=== PATIENT | female | born 1990 | race Caucasian/White ===

== ENCOUNTER 2016-04-14 19:10 | Emergency (ER) | payer OTHER ==
[~2016-04-14] VITALS: Ht 165.1 cm; Wt 75.0 kg
[2016-04-14 19:10] VITALS: Ht 165.1 cm; Wt 75.0 kg
[~2016-04-14 19:10] MED LIST: AMO500 PO; CIPR500T4 PO; NITR-58 PO
[2016-04-14] MEDS ORDERED: CETI10CA PO (19:20)
[2016-04-14] MEDS ORDERED: ACET500C5 PO (19:20)
[2016-04-14] MEDS ORDERED: AMO500 PO (19:20)
--- NOTE | 2016-04-14 19:24 | ERD ---
ER Documentation Chief Complaint Date/Time DATE: 04/14/16 TIME: 19:21 Chief Complaint B ear pressure from colds x days now HPI 22-year-old female presents to emergency department for complaints of bilateral ear pain, runny nose nasal congestion for 3 days. Patient has been having dry cough, does not up any phlegm or blood. Patient does not have any shortness breath or wheezing. Patient started to have bilateral ear pain yesterday, throbbing pain, 6/10 scale, denies any ear discharge, denies any problems with hearing. Patient denies any foreign body in the ear. Patient took Tylenol for pain with mild relief. Patient is approximately 28 weeks . Patient does not complain of abdominal pain, cramping, vaginal bleeding, or any problems with at this time. ROS All systems reviewed and are negative except as per history of present illness. Medications Home Meds Active Scripts Cetirizine Hcl* (Zyrtec*) 10 Mg Capsule, 10 MG PO DAILY, #30 TAB.CHEW Prov:DEMI WARREN NP 04/14/16 Acetaminophen* (Tylophen*) 500 Mg Capsule, 1 CAP PO Q6H Y for PAIN AND OR ELEVATED TEMP, #20 CAP Prov:DEMI WARREN PEDIATRICS PHYSICIAN 04/14/16 Amoxicillin* (Amoxicillin*) 500 Mg Cap, 500 MG PO TID for 10 Days, CAP Prov:DEMI WARREN PEDIATRICS PHYSICIAN 04/14/16 Nitrofurantoin Monohyd Macrocr* (Macrobid*) 100 Mg Capsr, 100 MG PO BID for 7 Days, CAP Prov:NICOLE POLK PA-C 11/18/15 Amoxicillin* (Amoxicillin*) 500 Mg Cap, 500 MG PO BID for 7 Days, CAP Prov:NICOLE POLKC 08/07/15 Ciprofloxacin Hcl* (Ciprofloxacin Hcl*) 500 Mg Tablet, 500 MG PO BID for 5 Days , TAB Prov:NICOLE POLKC 02/12/15 Allergies Allergies: Coded Allergies: No Known Allergy (Unverified , 05/22/14) PMhx/Soc History of Surgery: Yes (appendectomy) Anesthesia Reaction: No Hx Neurological Disorder: No Hx Respiratory Disorders: No Hx Cardiac Disorders: No Hx Psychiatric Problems: No Hx Miscellaneous Medical Probl: No Hx Alcohol Use: No Hx Substance Use: No Hx Tobacco Use: No FmHx Family History: diabetes Physical Exam Vitals Vital Signs Date Time Temp Pulse Resp B/P Pulse Ox O2 Delivery O2 Flow Rate FiO2 04/14/16 19:10 97.8 78 18 109/53 99 Physical Exam GENERAL: The patient is well developed and appropriate for usual state of health, in no apparent distress. HEENT: Atraumatic. Ears: Lateral ear tympanic membrane is noted to be erythematous and bulging. No ear canal swelling. No ear discharge. Nose: Erythematous nasal turbinates with clear nasal discharge. Throat: oropharynx erythematous with postnasal drip. No tonsillar swelling or tonsillar exudates. No lymphadenopathy. CHEST: Clear to auscultation bilaterally. There are no rales, wheezes or rhonchi. HEART: Regular rate and rhythm. No murmurs, clicks, rubs or gallops. No S3 or S4. ABDOMEN: Soft, nontender and nondistended. Good bowel sounds. No rebound or guarding. No gross peritonitis. No gross organomegaly or masses. No Burk sign or McBurney point tenderness. BACK: No midline or flank tenderness. EXTREMITIES: Equal pulses bilaterally. There is no peripheral clubbing, cyanosis or edema. No focal swelling or erythema. Full range of motion. Grossly neurovascularly intact. NEURO: Alert and oriented. Cranial nerves 2-12 intact. Motor strength in all 4 extremities with 5/5 strength. Sensation grossly intact. Normal speech and gait. SKIN: There is no apparent rash or petechia. The skin is warm and dry. HEMATOLOGIC AND LYMPHATIC: There is no evidence of excessive bruising or lymphedema. No gross cervical, axillary, or inguinal lymphadenopathy. Procedures/MDM Medical Decision Making: Patient symptoms are most likely consistent with upper respiratory tract infection most likely viral, but withsecondary infection bilateral otitis media which is most likely bacterial. No symptoms of otitis externa or mastoiditis. No murmur body noted in the ear. No cerumen impaction noted. No foreign body noted in the ear, noted on exam with perforation noted. There is low suspicion for Pneumonia at this time since patients lungs sounds are clear, patient O2 saturation is normal and patient doesnt show any respiratory distress. Radiology exams indicated at this time. There is low suspicion for other cardiopulmonary emergencies at this time such as CHF, Pulmonary Embolism, Pneumothorax, Aortic Aneurysm or any other cardiopulmonary emergencies at this time. There is low suspicion for sepsis. Patient appears well and is hemodynamically stable. Fever is controlled with medicines. No symptoms of any threatened or any problems with . Disposition: Home. Condition: Stable Prescriptions: Tylenol, Zyrtec, amoxicillin Instructions: Patient is advised to take medications as prescribed. Patient is advised to rest. Patient advised to increase fluid intake, do humidifier at home and if possible, do salt water gargles. Patient is advised that if symptoms are worse, shortness of breath, uncontrolled fever, stridor, vomiting, worst signs and symptoms to return to emergency department immediately. Otherwise, patient is advised to follow up with primary doctor in 5-7 days. Departure Diagnosis: Primary Impression: URI (upper respiratory infection) URI type: unspecified viral URI Qualified Code: J06.9 - Viral upper respiratory tract infection Additional Impression: Bilateral otitis media Otitis media type: serous Chronicity: acute Recurrence: not specified as recurrent Qualified Code: H65.03 - Bilateral acute serous otitis media, recurrence not specified Condition: Stable Patient Instructions: Otitis Media, Abx Tx (Adult), Uri, Viral, No Abx (Adult) DEMI WARREN NP Apr 14, 2016 19:24
== END 2016-04-14 19:24 | disposition home or self-care (01) ==
LOC: FTE 19:10
DX: J06.9 Acute upper respiratory infection, unspecified (principal); H65.03 Acute serous otitis media, bilateral
CPT/HCPCS: 99283

== ENCOUNTER 2016-04-23 12:24 | Outpatient (CLI) | payer OTHER ==
[~2016-04-23] VITALS: Ht 165.1 cm; Wt 72.8 kg
[~2016-04-23 12:24] MED LIST changes: +ACET500C5 PO; +CETI10CA PO
[2016-04-23 12:36] VITALS: Ht 165.1 cm; Wt 72.8 kg
[2016-04-23 12:37] VITALS: BP 127/67; RESP 20
[2016-04-23] MEDS ORDERED: PRENAT PO (12:49)
[2016-04-23 13:25] LABS: BASOPHILS % 0.1 % (0.0-2.0); EOSINOPHILS # 0.1 10^3/ul (0.0-0.5); EOSINOPHILS % 0.8 % (0.0-7.0); HEMATOCRIT 31.7 % (37.0-47.0); HEMOGLOBIN 10.8 g/dl (12.0-16.0); LYMPHOCYTES % 12.4 % (15.0-51.0); MEAN CORPUSCULAR HEMOGLOBIN 30.7 pg (29.0-33.0); MEAN CORPUSCULAR HGB CONC 34.1 g/dl (32.0-37.0); MEAN CORPUSCULAR VOLUME 89.9 fl (82.0-101.0); MEAN PLATELET VOLUME 6.9 fl (7.4-10.4); MONOCYTE # 0.4 10^3/ul (0.3-0.9); MONOCYTES % 4.9 % (0.0-11.0); NEUTROPHIL # 6.3 10^3/ul (1.6-7.5); NEUTROPHILS % 81.8 % (39.0-77.0); PLATELET COUNT 391 10^3/UL (140-440); RED BLOOD COUNT 3.53 10^6/ul (4.20-5.40); RED CELL DISTRIBUTION WIDTH 12.4 % (11.5-14.5); UNCORRECTED WBC 7.8 10^3/ul (4.8-10.8); WHITE BLOOD COUNT 7.8 10^3/ul (4.8-10.8)
[2016-04-23 13:26] LABS: INR 0.92; PROTIME 12.4 Sec (12.2-14.2)
[2016-04-23 13:27] LABS: PARTIAL THROMBOPLASTIN TIME 29.1 Sec (25.0-35.0)
--- NOTE | 2016-04-23 13:33 | RADRPT ---
PROCEDURE: US OB biophysical profile. CLINICAL INDICATION: decreased movements, hypertension TECHNIQUE: Multiple sonographic images of the pelvis were obtained. The images were reviewed on a PACS workstation. COMPARISON: 11/18/15 FINDINGS: There is a single viable intrauterine gestation. Cardiac activity is present with 140 beats per min [place]. There is a vertex presentation. The placenta is anterior. There is no evidence of placental abruption. There is a normal amount of amniotic fluid with an CECELIA = 12.6 cm. Biophysical profile: movement 2/2 tone 2/2. breathing 2/2 CECELIA 2/2 Total 11/12 RPTAT: AA . IMPRESSION: Normal biophysical profile. . .Isreal Grande MD, MD Date Time Electronically viewed and signed by .Isreal Grande MD, on 04/23/2016 13:32 .S/
[2016-04-23 13:34] LABS: CONDITION 1
[2016-04-23 13:36] LABS: POTASSIUM 3.7 mmol/L (3.5-5.1)
[2016-04-23 13:38] LABS: BILIRUBIN,INDIRECT 0.1 mg/dl (0-1.1); BILIRUBIN,TOTAL 0.1 mg/dl (0.2-1.3); TOTAL PROTEIN 7.8 g/dl (6.1-8.1)
[2016-04-23 13:39] LABS: URIC ACID 2.3 mg/dl (3.1-7.9)
[2016-04-23 13:45] LABS: ALBUMIN 3.5 g/dl (3.3-4.9); ALBUMIN/GLOBULIN RATIO 0.81
[2016-04-23 13:49] LABS: CREATININE 0.48 mg/dl (0.44-1.00)
[2016-04-23 13:50] LABS: CALCIUM 8.7 mg/dl (8.4-10.2)
[2016-04-23 13:55] LABS: ADD UMIC YES; URINE BILIRUBIN (Dip) NEGATIVE (NEGATIVE); URINE BLOOD (Dip) 2+ (NEGATIVE); URINE COLOR YELLOW (YELLOW); URINE GLUCOSE (Dip) NEGATIVE (NEGATIVE); URINE KETONES (Dip) TRACE (NEGATIVE); URINE LEUKOCYTE ESTERASE (Dip) 2+ (NEGATIVE); URINE NITRITE (Dip) NEGATIVE (NEGATIVE); URINE TOTAL PROTEIN (Dip) TRACE (NEGATIVE); URINE UROBILINOGEN (Dip) 0.2 E.U./dL (0.1-1.0)
[2016-04-23 14:13] LABS: BACTERIA,URINE MANY; MUCUS,URINE MANY
--- NOTE | 2016-04-23 15:04 | QN ---
Documentation Comment OB triage: 29+wks GA R/o PIH No headache no epigastric pain no blurry vision VS stable BP 100-120/80s NST reassuring Organ no CTXs pelvic deffered ---->Collect 24 hr urine for pr --->return to hospital for another NST BPP and BP monitoring in 2 days JUAN HARRIS M.D. Apr 23, 2016 15:04
== END 2016-04-23 15:18 | disposition home or self-care (01) ==
LOC: OBT 12:24 → L-D 12:24 → OBT 15:18
PROVIDERS: ATTEND Obstetrics & Gynecology
DX: O26.893 Other specified pregnancy related conditions, third trimester (principal); R03.0 Elevated blood-pressure reading, without diagnosis of hypertension; Z3A.29 29 weeks gestation of pregnancy
CPT/HCPCS: 76818; 80053; 81001; 81003; 84560; 85025; 85610; 85730; Z7500; 87086; G0463

== ENCOUNTER 2016-04-25 10:34 | Outpatient (CLI) | payer OTHER ==
[~2016-04-25] VITALS: Ht 165.1 cm; Wt 74.8 kg
[~2016-04-25 10:34] MED LIST changes: -ACET500C5 PO; -AMO500 PO; -CETI10CA PO; -CIPR500T4 PO; -NITR-58 PO; +PRENAT PO
[2016-04-25] MEDS ORDERED: FER325 PO (10:51)
[2016-04-25 10:52] VITALS: BP 106/54; PULSE 84; RESP 18; Ht 165.1 cm; Wt 74.8 kg
--- NOTE | 2016-04-25 13:37 | CONS ---
DATE OF ADMISSION: 04/25/2016 DATE OF CONSULTATION: 04/25/2016 HISTORY OF PRESENT ILLNESS: This patient is a 25-year-old 2, para 0, 1, with EDC of 07/06/2016, which makes her about 29 weeks and 5 days. She apparently had elevated blood pressure in Dr. Kramer's office. Was sent to triage for work up,. A 24 hours urine collection was ordered and today she brought back the specimen. PHYSICAL EXAMINATION: VITAL SIGNS: On examination today, she is afebrile. Abdomen is soft. Her blood pressure is within normal range 106/54. Not complaining of headache. Her pulse rate and temperature and saturation are all within normal limits. ABDOMEN: Soft. he is now 29 weeks and 5 days and heart tone appears to be normal. No deceleration, no decreased variability is visible. EXTREMITIES: No edema. No varicosity. Knee jerk reflexes are within normal limits. PLAN: We will send the urine specimen for 24-hour urine protein and she will be followed in Dr. Kramer's office and the results will be sent there. Dictated By: JAMISON SHAIKH MD HF/NTS Conf#: [id number] DID#: [id number] ALEN
== END 2016-04-25 11:25 | disposition home or self-care (01) ==
LOC: OBT 10:34 → L-D 10:35 → OBT 11:25
PROVIDERS: ATTEND Obstetrics & Gynecology
DX: O14.93 Unspecified pre-eclampsia, third trimester (principal); Z3A.29 29 weeks gestation of pregnancy
CPT/HCPCS: 59025; 84156; G0463

== ENCOUNTER 2016-06-30 08:07 | Outpatient (CLI) | payer OTHER ==
[~2016-06-30] VITALS: Ht 165.1 cm; Wt 81.1 kg
[~2016-06-30 08:07] MED LIST changes: +FER325 PO
[2016-06-30 08:13] VITALS: Ht 165.1 cm; Wt 81.1 kg
[2016-06-30 08:14] VITALS: BP 104/63; PULSE 98; RESP 17
--- NOTE | 2016-06-30 08:43 | RADRPT ---
PROCEDURE: OB ultrasound for biophysical profile CLINICAL INDICATION: Biophysical profile. . TECHNIQUE: Multiple sonographic images of the pelvis were obtained. Transabdominal view of the gr avid uterus are available for review. The images were reviewed on a PACS workstation. COMPARISON: 04/23/2016 FINDINGS: Single intrauterine gestation. Presentation: Cephalic. Partially visualized placenta: Anterior. breathing movement = 2/2 tone = 2/2 motion = 2/2 CECELIA = 2/2 CECELIA = 10 cm heart rate: 165 beats per minute IMPRESSION: Single intrauterine gestation. Biophysical profile 11/12 RPTAT: AADD .Martin Israel MD, MD Date Time Electronically viewed and signed by .Martin Israel MD, on 06/30/2016 08:43 .B/
--- NOTE | 2016-06-30 09:02 | QN ---
Documentation Comment 39+wks GA with Hx of Low CECELIA ,Currently CECELIA is 10 BPP 11/12 and NST reactive Patient is not in labor ,,According to primary provider's decision and the patient ,patient is discharged and will return to the hospital in 2 days for another NST and BPP.The instructions and precautions reviewed with patient and patient's questions and family members answered JUAN HARRIS M.D. Jun 30, 2016 09:02
--- NOTE | 2016-06-30 09:58 | TRIAGE ---
OB Triage Datetime Report Generated by CPN: 06/30/2016 09:58 Datetime: 06/30/2016 08:52 Labor Evaluation Frequency: X1 Monitor Mode: External Duration (sec)2399: 80 Quality: Mild Pattern: Normal: <= 5 Contractions in 10 Minutes Resting Tone [place]: Relaxed Heart Rate FHR Baseline Rate: 145 Monitor Mode: External US FHR Baseline Changes: No Baseline Change Variability: Moderate 6-25 bpm Accelerations: 15X15 Decelerations: None Category: Category I Pain Assessment Pain Scale: 0 Pain Presence: None/Denies Pain Type: N/A Vaginal Exam Membrane Status: Intact Datetime: 06/30/2016 08:16 Time of Arrival: 06/30/2016 08:08 EGA: 39.1 Arrived By: Ambulatory Arrived From: Home Chief Complaint: PT PRESENTS TO TRIAGE FOR FOLLOW UP BPP DUE TO LOW CECELIA Movement: Present Contractions: Denies/Absent Rupture of Membranes: Denies Vaginal Bleeding: None Vaginal Discharge: Present Recent Sexual Intercouse: Denies Abdominal Trauma: Not Applicable Patient Complaints: None Additional Patient Complaints: CECELIA 06/24-10, CECELIA 06/28-6 Time Provider Notified: 06/30/2016 08:45 Provider Notified: BEULAH Initial Plan: NST/BPP Datetime: 06/30/2016 08:15 Assessment Type: Triage Maternal Assessment Level of Consciousness: Fully Conscious DTR's/Clonus: DTRs 2+; No Clonus Headache: Denies Blurred Vision: No Respiratory Effort: Unlabored; Regular Rhythm Breath Sounds, Left: Clear and Equal Breath Sounds, Right: Clear and Equal Nausea/Vomiting: Denies RUQ Epigastric Pain: Denies Lower Extremities Edema: None Degree: None Upper Extremities Edema: None Degree: None Facial Edema: None Fall Risk Assessment History of Falling: (0) No Secondary Diagnosis: (0) No Ambulatory Aid: (0) Bedrest/Nurse Assist IV Therapy: (0) No Gait: (0) Normal/Bedrest/Immobile Mental Status: (0) Oriented to Own Ability Fall Score: 0 Fall Risk Score Definition: No Risk: No action required Datetime: 06/30/2016 08:14 Monitor Mode: External Monitor Mode: External US Pain Assessment Pain Scale: 0 Pain Presence: None/Denies Pain Type: N/A Datetime: 04/25/2016 10:50 Assessment Type: Triage Maternal Assessment Level of Consciousness: Fully Conscious DTR's/Clonus: DTRs 2+; No Clonus Headache: Denies Blurred Vision: No Respiratory Effort: Unlabored; Regular Rhythm; Equal Expansion Breath Sounds, Left: Clear and Equal Breath Sounds, Right: Clear and Equal Nausea/Vomiting: Denies RUQ Epigastric Pain: Denies Lower Extremities Edema: None Degree: None Upper Extremities Edema: None Degree: None Facial Edema: None Fall Risk Assessment History of Falling: (0) No Secondary Diagnosis: (0) No Ambulatory Aid: (0) Bedrest/Nurse Assist IV Therapy: (0) No Gait: (0) Normal/Bedrest/Immobile Mental Status: (0) Oriented to Own Ability Fall Score: 0 Fall Risk Score Definition: No Risk: No action required Datetime: 04/25/2016 10:49 Time of Arrival: 04/25/2016 10:33 EGA: 29.5 Arrived By: Ambulatory Arrived From: Home Chief Complaint: pt here with 24 hour urine collection Movement: Present Contractions: Denies/Absent Rupture of Membranes: Denies Vaginal Bleeding: None Vaginal Discharge: Denies Recent Sexual Intercouse: Denies Abdominal Trauma: Not Applicable Patient Complaints: None Time Provider Notified: 04/25/2016 10:56 Provider Notified: EBULAH Initial Plan: NST/24 HOUR URINE FOR PROTEIN Datetime: 04/23/2016 14:43 Labor Evaluation Frequency: 0 Duration (sec)2399: 0 Heart Rate FHR Baseline Rate: 150 FHR Baseline Changes: No Baseline Change Variability: Moderate 6-25 bpm Accelerations: 10X10 Category: Category I Pain Assessment Pain Scale: 0 Pain Presence: None/Denies Pain Type: N/A Pain Goal: 0 Datetime: 04/23/2016 13:45 Stage of : OB Triage Labor Evaluation Frequency: 0 Monitor Mode: External Heart Rate FHR Baseline Rate: 135 Monitor Mode: External US Variability: Moderate 6-25 bpm Accelerations: 10X10 Decelerations: None Category: Category I Pain Assessment Pain Scale: 0 Pain Presence: None/Denies Pain Type: N/A Pain Goal: 0 Vaginal Exam Membrane Status: Intact Datetime: 04/23/2016 13:10 Stage of : OB Triage Labor Evaluation Frequency: 0 Monitor Mode: External Heart Rate FHR Baseline Rate: 145 Monitor Mode: External US Variability: Moderate 6-25 bpm Accelerations: 10X10 Decelerations: None Category: Category I Datetime: 04/23/2016 13:08 Labor Evaluation Frequency: 0 Monitor Mode: External Heart Rate FHR Baseline Rate: 140 Monitor Mode: External US FHR Baseline Changes: No Baseline Change Variability: Moderate 6-25 bpm Accelerations: 10X10 Decelerations: None Category: Category I Pain Assessment Pain Scale: 0 Pain Presence: None/Denies Pain Type: N/A Pain Goal: 0 Datetime: 04/23/2016 12:45 Stage of : OB Triage Assessment Type: Triage Maternal Assessment Level of Consciousness: Fully Conscious DTR's/Clonus: DTRs 2+; No Clonus Headache: Denies Blurred Vision: No Respiratory Effort: Unlabored; Regular Rhythm; Equal Expansion Breath Sounds, Left: Clear and Equal Breath Sounds, Right: Clear and Equal Nausea/Vomiting: Denies RUQ Epigastric Pain: Denies Lower Extremities Edema: None Degree: None Upper Extremities Edema: None Degree: None Facial Edema: None Fall Risk Assessment History of Falling: (0) No Secondary Diagnosis: (0) No Ambulatory Aid: (0) Bedrest/Nurse Assist IV Therapy: (0) No Gait: (0) Normal/Bedrest/Immobile Mental Status: (0) Oriented to Own Ability Fall Score: 0 Fall Risk Score Definition: No Risk: No action required Datetime: 04/23/2016 12:43 EGA: 29.3 Datetime: 04/23/2016 12:42 Time of Arrival: 04/23/2016 12:22 Arrived By: Ambulatory Arrived From: Dr. Velasquez Chief Complaint: ELEVATED BLOOD PRESSURE AT CLINIC Movement: Present Contractions: Denies/Absent Rupture of Membranes: Denies Vaginal Bleeding: None Vaginal Discharge: Present Recent Sexual Intercouse: Denies Abdominal Trauma: Not Applicable Patient Complaints: None Additional Patient Complaints: STRESS FROM WORK ; NETWORK OPERATIONS MANAGER Time Provider Notified: 04/23/2016 14:22 Provider Notified: DR. RIOJAS Initial Plan: PIH, NST, BPP, 24 HOUR URINE Datetime: 04/23/2016 12:35 Monitor Mode: External Monitor Mode: External US Pain Assessment Pain Scale: 0 Pain Presence: None/Denies Pain Type: N/A Pain Goal: 0 Vaginal Exam Membrane Status: Intact
== END 2016-06-30 09:01 | disposition home or self-care (01) ==
LOC: L-D 08:07 → OBT 08:07
PROVIDERS: ATTEND Obstetrics & Gynecology
DX: O41.03X0 Oligohydramnios, third trimester, not applicable or unspecified (principal); Z3A.39 39 weeks gestation of pregnancy
CPT/HCPCS: 76818; Z7500; G0463

== ENCOUNTER 2016-07-03 08:53 | Inpatient (IN) | payer OTHER ==
[~2016-07-03] VITALS: Ht 165.1 cm; Wt 81.8 kg
[2016-07-03 09:35] VITALS: BP 132/91; PULSE 132; RESP 18; Ht 165.1 cm; Wt 81.8 kg
--- NOTE | 2016-07-03 09:57 | PN ---
Date/Time of Note Date/Time of Note DATE: 07/03/16 TIME: 09:52 OB Subjective Subjective Subjective here for f/u for amniotia fluid volume OB Objective Objective Objective CECELIA will be measured EFM mild irregular u.c reactive strip OB Assessment/Plan Other Assessment: IUP 39w4d CECELIA borderline Other plan: patient wants to go home if cecelia is ok f/u in 3days here in triage for CECELIA TIARRA RIOJAS MD Jul 03, 2016 09:57
--- NOTE | 2016-07-03 10:57 | RADRPT ---
PROCEDURE: US OB. CLINICAL INDICATION: Size and dates , low CECELIA TECHNIQUE: Multiple sonographic images of the pelvis and gravid uterus were obtained. The images were reviewed on a PACS workstation. COMPARISON: 06/30/16 FINDINGS: There is a single viable intrauterine gestation. Cardiac activity is present with 144 beats per min [place]. There is a vertex presentation. The placenta is anterior. There is no evidence for an abruption or placenta previa. There is a decreased amount of amniotic fluid with an CECELIA = 6.2 cm. Measurements were made in order to determine age. The results are as follows: BPD =8.9 cm HC =31.7 cm AC =33 cm FL =7.4 cm Estimated gestational age of approximately 36 weeks and 4 days based on ultrasound measurements. Clinical age: 39 weeks and 4 days. The estimated date of delivery is 07/27/16, based on ultrasound measurements. The EFW = 3060 g, 14.2%, based on LMP age. RPTAT: AA IMPRESSION: Single viable intrauterine gestation of approximately 36 weeks and 4 days based on ultrasound measu rements. Smaller than clinical age by 3 weeks. Oligohydramnios. .Isreal Grande MD, Date Time Electronically viewed and signed by .Isreal Grande MD, MD on 07/03/2016 10:56 .S/
[2016-07-03] MEDS ORDERED: LIDOCAINE 1% (MPF) 30 ML INJ INJ PRN (13:30)
[2016-07-03] MEDS ORDERED: IBUPROFEN 600 MG TAB PO PRN (13:30)
[2016-07-03] MEDS ORDERED: LACTATED RINGER'S 1,000 ML IV PRN (13:30)
[2016-07-03] MEDS ORDERED: CARBOPROST 250 MCG INJ IM PRN (13:30)
[2016-07-03] MEDS ORDERED: MISOPROSTOL 200 MCG TAB PR PRN (13:30)
[2016-07-03] MEDS ORDERED: OXYTOCIN 30 UNITS/LR 500 ML IV SCH ×2 (13:30)
[2016-07-03] MEDS ORDERED: OXYTOCIN 30 UNITS/LR 500 ML IV PRN (13:30)
[2016-07-03] MEDS ORDERED: DINOPROSTONE 10 MG VAG SUPP VAG ONE (13:30)
[2016-07-03] MEDS ORDERED: METHYLERGONOVINE 0.2 MG INJ IM PRN (13:30)
[2016-07-03 14:28] LABS: ADD SCAN DIFF NO
[2016-07-03 14:30] LABS: BASOPHILS % 0.2 % (0.0-2.0); EOSINOPHILS # 0.1 10^3/ul (0.0-0.5); EOSINOPHILS % 0.8 % (0.0-7.0); HEMATOCRIT 34.3 % (37.0-47.0); HEMOGLOBIN 11.3 g/dl (12.0-16.0); LYMPHOCYTES # 1.2 10^3/ul (0.8-2.9); LYMPHOCYTES % 12.7 % (15.0-51.0); MEAN CORPUSCULAR HEMOGLOBIN 29.6 pg (29.0-33.0); MEAN CORPUSCULAR HGB CONC 32.9 g/dl (32.0-37.0); MEAN CORPUSCULAR VOLUME 89.8 fl (82.0-101.0); MEAN PLATELET VOLUME 10.1 fl (7.4-10.4); MONOCYTE # 0.6 10^3/ul (0.3-0.9); NEUTROPHIL # 7.2 10^3/ul (1.6-7.5); NEUTROPHILS % 78.9 % (39.0-77.0); PLATELET COUNT 249 10^3/UL (140-415); RED BLOOD COUNT 3.82 10^6/ul (4.20-5.40); RED CELL DISTRIBUTION WIDTH 14.5 % (11.5-14.5); WHITE BLOOD COUNT 9.1 10^3/ul (4.8-10.8)
[2016-07-03] MEDS: LACTATED RINGER'S 1,000 ML IV SCH ×2 (14:34→21:42)
[2016-07-03 14:44] LABS: INR 0.87; PROTIME 11.8 Sec (12.2-14.2); PT RATIO 0.9
[2016-07-03 14:45] LABS: PARTIAL THROMBOPLASTIN TIME 27.3 Sec (25.0-35.0)
--- NOTE | 2016-07-03 16:10 | TRIAGE ---
OB Triage Datetime Report Generated by CPN: 07/03/2016 16:09 Datetime: 07/03/2016 15:54 Pain Assessment Pain Scale: 0 Pain Presence: None/Denies Pain Type: N/A Datetime: 07/03/2016 15:45 Labor Evaluation Frequency: none Monitor Mode: External Resting Tone [place]: Relaxed Heart Rate FHR Baseline Rate: 130 Monitor Mode: External US FHR Baseline Changes: No Baseline Change Variability: Moderate 6-25 bpm Accelerations: 15X15 Decelerations: None Category: Category I Datetime: 07/03/2016 15:30 Labor Evaluation Frequency: none Monitor Mode: External Resting Tone [place]: Relaxed Heart Rate FHR Baseline Rate: 130 Monitor Mode: External US FHR Baseline Changes: No Baseline Change Variability: Moderate 6-25 bpm Accelerations: 15X15 Decelerations: None Category: Category I Datetime: 07/03/2016 15:15 Labor Evaluation Frequency: none Monitor Mode: External Resting Tone [place]: Relaxed Heart Rate FHR Baseline Rate: 135 Monitor Mode: External US FHR Baseline Changes: No Baseline Change Variability: Moderate 6-25 bpm Accelerations: 15X15 Decelerations: None Category: Category I Datetime: 07/03/2016 15:00 Labor Evaluation Frequency: x1 Monitor Mode: External Duration (sec)2399: 60 Quality: Mild Pattern: Normal: <= 5 Contractions in 10 Minutes Resting Tone [place]: Relaxed Heart Rate FHR Baseline Rate: 130 Monitor Mode: External US FHR Baseline Changes: No Baseline Change Variability: Moderate 6-25 bpm Accelerations: 15X15 Decelerations: None Category: Category I Datetime: 07/03/2016 14:44 Vaginal Exam Dilatation (cms): 0.0 Exam By: AO Datetime: 07/03/2016 14:30 Assessment Type: Admission Assessment Vaginal Bleeding: None Maternal Assessment Level of Consciousness: Fully Conscious DTR's/Clonus: DTRs 2+; No Clonus Headache: Denies Blurred Vision: No Respiratory Effort: Unlabored; Regular Rhythm; Equal Expansion Breath Sounds, Left: Clear and Equal Breath Sounds, Right: Clear and Equal Nausea/Vomiting: Denies RUQ Epigastric Pain: Denies Lower Extremities Edema: None Degree: None Upper Extremities Edema: None Degree: None Facial Edema: None Fall Risk Assessment History of Falling: (0) No Secondary Diagnosis: (0) No Ambulatory Aid: (0) Bedrest/Nurse Assist IV Therapy: (20) Yes Gait: (0) Normal/Bedrest/Immobile Mental Status: (0) Oriented to Own Ability Fall Score: 20 Fall Risk Score Definition: No Risk: No action required Labor Evaluation Frequency: NONE Heart Rate FHR Baseline Rate: 130 Variability: Moderate 6-25 bpm Accelerations: 15X15 Decelerations: None Category: Category I Pain Assessment Pain Scale: 0 Pain Presence: None/Denies Pain Type: N/A Membrane Status: Intact Datetime: 07/03/2016 14:26 Time of Arrival: 07/03/2016 13:50 EGA: 39.4 Arrived By: Ambulatory Arrived From: Home Datetime: 07/03/2016 11:06 Headache: Denies Labor Evaluation Frequency: X2 Monitor Mode: External Duration (sec)2399: 40-50 Quality: Mild Pattern: Normal: <= 5 Contractions in 10 Minutes Resting Tone [place]: Relaxed Heart Rate FHR Baseline Rate: 145 Monitor Mode: External US FHR Baseline Changes: No Baseline Change Variability: Moderate 6-25 bpm Accelerations: 15X15 Decelerations: None Category: Category I Pain Assessment Pain Scale: 0 Pain Presence: None/Denies Pain Type: N/A Pain Goal: 0 Membrane Status: Intact Datetime: 07/03/2016 09:58 Headache: Denies Labor Evaluation Frequency: X2 Monitor Mode: External Duration (sec)2399: 50-60 Quality: Mild Pattern: Normal: <= 5 Contractions in 10 Minutes Resting Tone [place]: Relaxed Heart Rate FHR Baseline Rate: 150 Monitor Mode: External US FHR Baseline Changes: No Baseline Change Variability: Moderate 6-25 bpm Accelerations: 15X15 Decelerations: None Category: Category I Membrane Status: Intact Datetime: 07/03/2016 09:31 Monitor Mode: External Resting Tone [place]: Relaxed Heart Rate FHR Baseline Rate: 130 Monitor Mode: External US FHR Baseline Changes: No Baseline Change Variability: Moderate 6-25 bpm Accelerations: 15X15 Decelerations: None Category: Category I Datetime: 07/03/2016 09:19 Stage of : OB Triage Maternal Assessment Level of Consciousness: Fully Conscious DTR's/Clonus: DTRs 2+; No Clonus Headache: Denies Blurred Vision: No Respiratory Effort: Unlabored Breath Sounds, Left: Clear and Equal Breath Sounds, Right: Clear and Equal Nausea/Vomiting: Denies RUQ Epigastric Pain: Denies Facial Edema: None Labor Evaluation Frequency: X1 Monitor Mode: External Duration (sec)2399: 70 Quality: Mild Pattern: Normal: <= 5 Contractions in 10 Minutes Resting Tone [place]: Relaxed Heart Rate FHR Baseline Rate: 135 Monitor Mode: External US FHR Baseline Changes: No Baseline Change Variability: Moderate 6-25 bpm Accelerations: 15X15 Decelerations: None Category: Category I Pain Assessment Pain Scale: 0 Pain Presence: None/Denies Pain Type: N/A Pain Goal: 0 Pain Relief Measures: Comfort Measures Vaginal Exam Dilatation (cms): 0.0 Effacement (%): 0 Exam By: BRIAN AL Membrane Status: Intact Vaginal Bleeding: None Cervix, Consistency: Firm Cervix, Position: Posterior Presentation 'A': Unable to Assess Lie 'A': Unable to Assess Datetime: 07/03/2016 08:50 Arrived By: Ambulatory Arrived From: Home Chief Complaint: LOW CECELIA Movement: Present Contractions: Denies/Absent Rupture of Membranes: Denies Vaginal Bleeding: None Vaginal Discharge: Denies Recent Sexual Intercouse: Denies Abdominal Trauma: Not Applicable Patient Complaints: None Time Provider Notified: 07/03/2016 09:20 Provider Notified: BEULAH Datetime: 06/30/2016 08:16 EGA: 39.1 Datetime: 06/30/2016 08:15 Fall Score: 0 Fall Risk Score Definition: No Risk: No action required Datetime: 04/25/2016 10:50 Fall Score: 0 Fall Risk Score Definition: No Risk: No action required Datetime: 04/25/2016 10:49 EGA: 29.5 Datetime: 04/23/2016 12:45 Fall Score: 0 Fall Risk Score Definition: No Risk: No action required Datetime: 04/23/2016 12:43 EGA: 29.3
[2016-07-03] MEDS: BUTORPHANOL 2 MG INJ IV PRN (21:42)
[2016-07-04] MEDS: BUTORPHANOL 2 MG INJ IV PRN (01:34)
[2016-07-04] MEDS ORDERED: FENTAnyl 2MCG/ML-ROPIV 0.2% 100 ML ONE (05:15)
[2016-07-04] MEDS: LACTATED RINGER'S 1,000 ML IV SCH ×3 (05:27→18:57)
[2016-07-04] MEDS ORDERED: MINERAL OIL LIGHT 10 ML VIAL TOP SCH (14:30)
--- NOTE | 2016-07-04 15:07 | LDN ---
Date/Time of Note Date/Time of Note DATE: 07/04/16 TIME: 15:05 Delivery Summary normal vaginal delivery Weeks of Gestation 39w5d Placenta Delivered: Spontaneously Meconium: none Episiotomy: No Perineal laceration: 2 Laceration repair: 00ch Anesthesia type: Epidural Estimated blood loss: 100 Sponge & Needle done & correct: Yes All needle counts correct: Yes Any foreign bodies felt in the: No Problems: Delivery Information Sex Sex: female Apgars 1 Minute: 9 5 Minute: 9 Suctioning Nose & mouth suctioned at nelsy: Yes Delee suction performed: No Umbilical Cord Umbilical cord with: 3 Vessels Cord presentations: nuchal cord Nuchal cord present X: 1 Cord Blood was obtained: Yes Mother & Baby Disposition Disposition Mom & Baby to Maternity; Good: Yes Mom transferred to: Other () Baby to NICU: No TIARRA RIOJAS MD Jul 04, 2016 15:07
[2016-07-04 17:00] VITALS: BP 119/73; PULSE 80; RESP 18
[2016-07-04 17:30] VITALS: BP 118/62; PULSE 81; RESP 18
--- NOTE | 2016-07-04 17:57 | HP ---
Date/Time of Note Date/Time of Note DATE: 07/04/16 TIME: 17:51 OB - History Hx of Present Free Text/Dictation 25 y.o primigravida at 39w4d for f/u for borderline ramirez which was repeated at triage rvealed only 6cm she was recommanded for induction of labor for oligohydramnios and admitted for indction of labor cervix long and closed Estimated Due Date: Jul 07, 2016 : 1 Para: 0 Spontaneous : 0 Therapeutic : 0 Care: Good Care Ultrasounds: Normal mid trimester US Obstetrical Complications: Other (oligohydramnios) Past Family/Social History * Past Medical, Surgical, Family and Obstetric Histories reviewed from chart. Rubella: immune RPR/VDRL: Negative GBS Status: Negative HBsAG: Negative OB Admission Exam Vital Signs Vital Signs Vital Signs Date Time Temp Pulse Resp B/P Pulse Ox O2 Delivery O2 Flow Rate FiO2 07/04/16 17:00 99.1 80 18 119/73 Room Air 07/03/16 09:35 100 Physical Exam HEENT: WNL Cervical Dilatation: None Effacement: 0% Station: -2 Membranes: Intact Amniotic Fluid: Unevaluable Heart Rate: 140's Accelerations: Accelerations Present Decelerations: No Decelerations Varibility: Moderate Contractions on Admission: >10 Minutes Apart Intensity: Mild Last 72 hours Lab Results CBC & BMP 07/03/16 14:10 OB Assessment/Plan Reason for admission: induction of labor Other Assessment: oligodramnios Plan: Induction Induction Method: per Misoprostol Protocol TIARRA RIOJAS MD Jul 04, 2016 17:57
[2016-07-04] MEDS ORDERED: CARBOPROST 250 MCG INJ IM PRN (18:00)
[2016-07-04] MEDS ORDERED: ZOLPIDEM 5 MG TAB PO PRN (18:00)
[2016-07-04] MEDS ORDERED: LANOLIN 7 GM TUBE TOP PRN (18:00)
[2016-07-04] MEDS: IBUPROFEN 600 MG TAB PO SCH ×2 (18:00→23:34)
[2016-07-04] MEDS ORDERED: OXYTOCIN 30 UNITS/LR 500 ML IV PRN (18:00)
[2016-07-04] MEDS ORDERED: MISOPROSTOL 200 MCG TAB PR PRN (18:00)
[2016-07-04] MEDS ORDERED: BENZOCAINE 20% 56 ML SPRAY TOP PRN (18:00)
[2016-07-04] MEDS ORDERED: METHYLERGONOVINE 0.2 MG INJ IM PRN (18:00)
[2016-07-04] MEDS ORDERED: WITCH HAZEL/GLYCERIN PAD PR PRN (18:00)
[2016-07-04] MEDS ORDERED: OXYCODONE/ASPIRIN (4.88/325) TAB PO PRN ×2 (18:00)
[2016-07-04 20:14] VITALS: BP 111/65; PULSE 89; RESP 16
[2016-07-04] MEDS: SENNA/DOCUSATE NA (8.6MG/50MG) TAB PO SCH (21:24)
[2016-07-05 00:01] VITALS: BP 110/60; PULSE 80; RESP 18
[2016-07-05] MEDS: LACTATED RINGER'S 1,000 ML IV SCH ×2 (03:00→11:00)
[2016-07-05 04:00] VITALS: BP 100/57; PULSE 68; RESP 20
[2016-07-05] MEDS: IBUPROFEN 600 MG TAB PO SCH ×4 (05:40→23:24)
[2016-07-05 08:00] VITALS: BP 112/66; PULSE 79; RESP 18
[2016-07-05 08:06] LABS: ADD SCAN DIFF NO
[2016-07-05 08:14] LABS: BASOPHILS % 0.1 % (0.0-2.0); EOSINOPHILS # 0.1 10^3/ul (0.0-0.5); EOSINOPHILS % 0.6 % (0.0-7.0); HEMATOCRIT 31.8 % (37.0-47.0); HEMOGLOBIN 10.3 g/dl (12.0-16.0); LYMPHOCYTES # 1.6 10^3/ul (0.8-2.9); LYMPHOCYTES % 10.2 % (15.0-51.0); MEAN CORPUSCULAR HEMOGLOBIN 29.4 pg (29.0-33.0); MEAN CORPUSCULAR HGB CONC 32.4 g/dl (32.0-37.0); MEAN CORPUSCULAR VOLUME 90.9 fl (82.0-101.0); MEAN PLATELET VOLUME 10.2 fl (7.4-10.4); MONOCYTE # 1.1 10^3/ul (0.3-0.9); NEUTROPHILS % 81.7 % (39.0-77.0); PLATELET COUNT 211 10^3/UL (140-415); WHITE BLOOD COUNT 15.9 10^3/ul (4.8-10.8)
[2016-07-05] MEDS ORDERED: INFLUENZA VIRUS VACCINE 0.5 ML (DISPENSING) IM* ONE (09:00)
[2016-07-05] MEDS: SENNA/DOCUSATE NA (8.6MG/50MG) TAB PO SCH ×2 (10:25→21:00)
[2016-07-05 12:45] VITALS: BP 115/70; PULSE 78; RESP 18
--- NOTE | 2016-07-05 15:58 | PN ---
Date/Time of Note Date/Time of Note DATE: 07/05/16 TIME: 15:57 OB Subjective Subjective Subjective no c/o OB Objective Objective Objective vss afebrile fundus firm lochia min ext neg OB Assessment/Plan Other Assessment: stable Other plan: d/s home in am TIARRA RIOJAS MD Jul 05, 2016 15:58
[2016-07-05 16:09] VITALS: BP 109/57; PULSE 86; RESP 18
[2016-07-05 19:45] VITALS: BP 111/58; PULSE 73; RESP 18
[2016-07-06 03:40] VITALS: BP 108/68; PULSE 68; RESP 19
[2016-07-06] MEDS: IBUPROFEN 600 MG TAB PO SCH ×3 (05:43→17:26)
[2016-07-06 08:30] VITALS: BP 114/61; PULSE 79; RESP 18
[2016-07-06] MEDS: SENNA/DOCUSATE NA (8.6MG/50MG) TAB PO SCH (09:00)
[2016-07-06] MEDS ORDERED: DIPHTH/TET/ACEL PERTUSS (ADULT) 0.5 ML VIAL IM* ONE (09:00)
--- NOTE | 2016-07-06 12:15 | DS ---
Date/Time of Note Date/Time of Note DATE: 07/06/16 TIME: 12:13 Obstetrical Discharge Record Final Diagnosis Final Diagnosis: Term delivered Vaginal Delivery Obstetrical Delivery: Spontaneous, Laceration, Repaired Complications Other (oligohydramnious) Induction: Yes Condition on Discharge Physical Assessment Last Vitals: vss afebrile Voiding: Yes Bowel Movement: Yes Breast: Soft, non-tender Fundus: Firm Calf Tenderness: No Patient Condition: Stable TIARRA RIOJAS MD Jul 06, 2016 12:14
--- NOTE | 2016-07-06 12:17 | PD.PPDC ---
TAX ASSISTANT Discharge Instruction Diagnosis Final Diagnosis: s/p normal vaginal delivery Condition Patient Condition: Stable Diet Diet: Resume Regular Diet Activity/Restrictions Activity: May Shower Restrictions: No Lifting No Sexual Activity Nothing in the Vagina No [place] No Tampons, douche Follow-up Follow-up with Physician: 6, Week/Weeks Return to clinic for RISK ANALYST Instructions: Fever greater than 101 Chills Worsening abdominal pain Excessive Vaginal Bleeding More than 2 pads per hour Unable to tolerate diet OB Instructions: Breast Tenderness Depression Blurried Vision Headache TIARRA RIOJAS MD Jul 06, 2016 12:17
[2016-07-06 16:06] VITALS: BP 113/56; PULSE 83; RESP 18
== END 2016-07-06 18:10 | disposition home or self-care (01) | DRG 775 ==
LOC: OBT 08:53 → L-D 08:55 → OBT 14:22 → L-D 14:25 → PP1 07-04 16:55
PROVIDERS: ADMIT Obstetrics & Gynecology; ATTEND Obstetrics & Gynecology
PROC: 10E0XZZ Delivery of Products of Conception, External Approach (ICD-10-PCS; principal; 2016-07-04)
PROC: 0KQM0ZZ Repair Perineum Muscle, Open Approach (ICD-10-PCS; 2016-07-04)
DX: O69.81X0 Labor and delivery complicated by cord around neck, without compression, not applicable or unspecified (principal); O41.03X0 Oligohydramnios, third trimester, not applicable or unspecified; O70.1 Second degree perineal laceration during delivery; Z3A.39 39 weeks gestation of pregnancy; Z37.0 Single live birth
CPT/HCPCS: 62319; 76815; 85025; 85610; 85730; 86592; 86900; 86901; 87340; 90686; 90715; G0463; J2590; J3010; J7120